=== PATIENT | female | born 1955 | race African-American/Black ===

== ENCOUNTER 2018-06-06 10:55 | Emergency (ER) | payer MEDICAID ==
[2018-06-06 11:03] VITALS: BP 119/91
[2018-06-06] MEDS ORDERED: Ketorolac 30 MG/ML SDV IM ONE (11:19)
--- NOTE | 2018-06-06 11:29 | EDM.PDOC ---
ED HPI GENERAL MEDICAL PROBLEM - General Chief Complaint: Back Pain or Injury Stated Complaint: [id number] BACK PAIN Time Seen by Provider: 06/06/18 11:15 Source of Information: Reports: Patient History Limitations: Reports: No Limitations - History of Present Illness INITIAL COMMENTS - FREE TEXT/NARRATIVE: This 63 yo female patient reports to the ED with right lower back pain. The patient reports her pain started about 6 weeks ago when she was hit by a cart while shopping in [facility]. The patient reports her pain got a little better, but has gotten worse over the past 48 hours. The patient reports she has taken Tylenol (last dose was last night). The patient has a history lower back pain and surgery. The patient has not been seen by her primary care facility (she attempted to get an appointment prior to coming to the ED, but her provider did not have any appointments available). 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 [No Known Home Meds] 11/12/14 [History] Past Medical History HEENT History: Reports: None Cardiovascular History: Reports: None Respiratory History: Reports: None Gastrointestinal History: Reports: None Genitourinary History: Reports: None Musculoskeletal History: Reports: Back Pain, Chronic Neurological History: Reports: None Psychiatric History: Reports: None Endocrine/Metabolic History: Reports: None Hematologic History: Reports: None Immunologic History: Reports: None Oncologic (Cancer) History: Reports: None Dermatologic History: Reports: None - Past Surgical History Musculoskeletal Surgical History: Reports: Other (See Below) Other Musculoskeletal Surgeries/Procedures:: back surgery, unsure what was done Social & Family History - Tobacco Use Smoking Status *Q: Current Every Day Smoker Years of Tobacco use: 30 Packs/Tins Daily: 0.5 ED ROS GENERAL - Review of Systems Review Of Systems: ROS reveals no pertinent complaints other than HPI. ED EXAM,LOWER BACK PAIN/INJURY - Physical Exam Exam: See Below Exam Limited By: No Limitations General Appearance: Alert, WD/WN, Moderate Distress Eye Exam: Bilateral Eye: EOMI, Normal Inspection, PERRL Ears: Normal External Exam, Normal Canal, Hearing Grossly Normal, Normal TMs Nose: Normal Inspection, Normal Mucosa, No Blood Throat/Mouth: Normal Inspection, Normal Lips, Normal Teeth, Normal Gums, Normal Oropharynx, Normal Voice, No Airway Compromise Head: Atraumatic, Normocephalic Neck: Normal Inspection, Supple, Non-Tender, Full Range of Motion Respiratory/Chest: No Respiratory Distress, Lungs Clear, Normal Breath Sounds, No Accessory Muscle Use, Chest Non-Tender Cardiovascular: Normal Peripheral Pulses, Regular Rate, Rhythm, No Edema, No Gallop, No JVD, No Murmur, No Rub GI/Abdominal: Normal Bowel Sounds, Soft, Non-Tender, No Organomegaly, No Distention, No Abnormal Bruit, No Mass (Female) Exam: Deferred Rectal (Female) Exam: Deferred Back Exam: Paraspinal Tenderness (right sided) Extremities: Normal Inspection, Normal Range of Motion, Non-Tender, No Pedal Edema, Normal Capillary Refill Neurological: Alert, Normal Mood/Affect, CN II-XII Intact, Normal Reflexes, No Motor/Sensory Deficits, Oriented x 3, Abnormal Gait (due to lower back pain) Psychiatric: Normal Affect, Normal Mood Skin Exam: Warm, Dry, Intact, Normal Color, No Rash Lymphatic: No Adenopathy Course - Vital Signs Last Recorded V/S: Last Vital Signs Temp 37.0 C 06/06/18 11:02 Pulse 70 06/06/18 11:02 Resp 16 06/06/18 11:02 BP 119/91 H 06/06/18 11:02 Pulse Ox 99 06/06/18 11:02 - Orders/Labs/Meds Meds: Medications Discontinued Medications Generic Name Dose Route Start Last Admin Trade Name Freq PRN Reason Stop Dose Admin Ketorolac Tromethamine 30 mg 06/06/18 11:19 06/06/18 11:25 Toradol IM 06/06/18 11:20 30 mg ONETIME ONE Administration Departure - Departure Time of Disposition: 11:36 Disposition: Home, Self-Care 01 Condition: Fair Clinical Impression: Low back pain Qualifiers: Chronicity: chronic Back pain laterality: right Sciatica presence: with sciatica Sciatica laterality: sciatica of right side Qualified Code(s): M54.41 - Lumbago with sciatica, right side - Discharge Information *PRESCRIPTION DRUG MONITORING PROGRAM REVIEWED*: Yes *COPY OF PRESCRIPTION DRUG MONITORING REPORT IN PATIENT CASEY: No Instructions: Back Pain, Adult, [id number] Forms: ED Department Discharge Care Plan Goals: The patient was advised of the examination results during the visit. The patient was given an injection of Toradol while in the ED. The patient was discharged with a script for Toradol (10 mg) #20 to take 1 by mouth every 6 hours and Flexeril (10 mg) #20 to take 1 by mouth at bedtime as needed. If the patient has any additional symptoms or concerns, the patient should follow-up with her primary care facility or return to the emergency department.
== END 2018-06-06 11:45 | disposition home or self-care (01) ==
LOC: DL.ED 10:55
DX: M54.41 Lumbago with sciatica, right side (principal); F17.210 Nicotine dependence, cigarettes, uncomplicated
CPT/HCPCS: 96372; 99283; J1885

== ENCOUNTER 2019-06-27 23:43 | Emergency (ER) | payer MEDICARE, MEDICAID ==
[2019-06-27 23:50] VITALS: BP 140/73
--- NOTE | 2019-06-28 00:02 | EDM.PDOC ---
ED HPI GENERAL MEDICAL PROBLEM - General Chief Complaint: Lower Extremity Injury/Pain Stated Complaint: KNEE Time Seen by Provider: 06/27/19 23:50 Source of Information: Reports: Patient History Limitations: Reports: No Limitations - History of Present Illness INITIAL COMMENTS - FREE TEXT/NARRATIVE: This 64 yo female patient reports to the ED with right medial knee pain that radiates up to her medial thigh. The patient reports she fell about 1 week ago. This evening (at 1900) she began to have increased pain in her knee and has not been able to sleep. The patient has not taken anything for temporary symptom relief. The patient has not seen her primary care provider and has not attempted ice or heat. 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 [No Known Home Meds] 11/12/14 [History] Past Medical History HEENT History: Reports: None Cardiovascular History: Reports: None Respiratory History: Reports: None Gastrointestinal History: Reports: None Genitourinary History: Reports: None Musculoskeletal History: Reports: Back Pain, Chronic Neurological History: Reports: None Psychiatric History: Reports: None Endocrine/Metabolic History: Reports: None Hematologic History: Reports: None Immunologic History: Reports: None Oncologic (Cancer) History: Reports: None Dermatologic History: Reports: None - Past Surgical History Musculoskeletal Surgical History: Reports: Other (See Below) Other Musculoskeletal Surgeries/Procedures:: back surgery, unsure what was done Social & Family History - Tobacco Use Smoking Status *Q: Heavy Tobacco Smoker Years of Tobacco use: 30 Packs/Tins Daily: 0.5 - Recreational Drug Use Recreational Drug Use: Yes Recreational Drug Type: Reports: Marijuana/Hashish Recreational Drug Use Frequency: Socially Review of Systems - Review of Systems Review Of Systems: ROS reveals no pertinent complaints other than HPI. ED EXAM, GENERAL - Physical Exam Exam: See Below Exam Limited By: No Limitations General Appearance: Alert, WD/WN, Mild Distress Eye Exam: Bilateral Eye: EOMI, Normal Inspection, PERRL Ears: Normal External Exam, Normal Canal, Hearing Grossly Normal, Normal TMs Nose: Normal Inspection, Normal Mucosa, No Blood Throat/Mouth: Normal Inspection, Normal Lips, Normal Teeth, Normal Gums, Normal Oropharynx, Normal Voice, No Airway Compromise Head: Atraumatic, Normocephalic Neck: Normal Inspection, Supple, Non-Tender, Full Range of Motion Respiratory/Chest: No Respiratory Distress, Lungs Clear, Normal Breath Sounds, No Accessory Muscle Use, Chest Non-Tender Cardiovascular: Normal Peripheral Pulses, Regular Rate, Rhythm, No Edema, No Gallop, No JVD, No Murmur, No Rub GI/Abdominal: Normal Bowel Sounds, Soft, Non-Tender, No Organomegaly, No Distention, No Abnormal Bruit, No Mass (Female) Exam: Deferred Rectal (Female) Exam: Deferred Back Exam: Normal Inspection, Full Range of Motion, NT Extremities: Leg Pain (right medial knee pain) Neurological: Alert, Oriented, CN II-XII Intact, Normal Cognition, Normal Gait, Normal Reflexes, No Motor/Sensory Deficits Psychiatric: Normal Affect, Normal Mood Skin Exam: Warm, Dry, Intact, Normal Color, No Rash Lymphatic: No Adenopathy Course - Vital Signs Last Recorded V/S: Last Vital Signs Temp 36.8 C 06/27/19 23:47 Pulse 72 06/27/19 23:47 Resp 16 06/27/19 23:47 BP 140/73 06/27/19 23:47 Pulse Ox 98 06/27/19 23:47 - Orders/Labs/Meds Orders: Active Orders 24 hr Category Date Time Status Knee 3V Rt [CR] Urgent Exams 06/28/19 00:06 Ordered DME for Discharge [COMM] Urgent Oth 06/28/19 00:22 Ordered Meds: Medications Discontinued Medications Generic Name Dose Route Start Last Admin Trade Name Freq PRN Reason Stop Dose Admin Ketorolac Tromethamine 30 mg 06/28/19 00:20 Toradol IM 06/28/19 00:21 ONETIME ONE Departure - Departure Time of Disposition: 00:23 Disposition: Home, Self-Care 01 Condition: Fair Clinical Impression: Strain of right knee Qualifiers: Encounter type: initial encounter Qualified Code(s): S86.911A - Strain of unspecified muscle(s) and tendon(s) at lower leg level, right leg, initial encounter - Discharge Information *PRESCRIPTION DRUG MONITORING PROGRAM REVIEWED*: Not Applicable *COPY OF PRESCRIPTION DRUG MONITORING REPORT IN PATIENT CASEY: Not Applicable Instructions: Crutch Use, Adult, [id number], Knee Sprain, Adult, [id number] , How to Use a Knee Immobilizer, Ibmt-[id number] Forms: ED Department Discharge Care Plan Goals: The patient was advised of the examination and x-ray results during the visit. The patient was given an injection of Toradol while in the ED. The patient was placed in a right knee immobilizer and given a set of crutches in the ED. The patient was encouraged to rest, ice and elevate her right knee over the next 48 hours. The patient should follow-up with her primary care facility for continued evaluation and management. If the patient has any additional symptoms or concerns, the patient should either return to the emergency department or visit her primary care facility. - My Orders Last 24 Hours: My Active Orders 06/28/19 00:06 Knee 3V Rt [CR] Urgent 06/28/19 00:22 DME for Discharge [COMM] Urgent - Assessment/Plan Last 24 Hours: My Active Orders 06/28/19 00:06 Knee 3V Rt [CR] Urgent 06/28/19 00:22 DME for Discharge [COMM] Urgent
[2019-06-28] MEDS ORDERED: Ketorolac 30 MG/ML SDV IM ONE (00:20)
== END 2019-06-28 00:35 | disposition home or self-care (01) ==
LOC: DL.ED 23:43
DX: S86.911A Strain of unspecified muscle(s) and tendon(s) at lower leg level, right leg, initial encounter (principal); F17.210 Nicotine dependence, cigarettes, uncomplicated; W19.XXXA Unspecified fall, initial encounter
CPT/HCPCS: 73562; 96372; 99283; J1885

== ENCOUNTER 2019-07-30 12:00 | Emergency (ER) | payer MEDICARE, MEDICAID ==
[2019-07-30 12:28] VITALS: BP 153/88
[2019-07-30] MEDS ORDERED: Albuterol/Ipratropium 3.0-0.5 MG/3 ML Neb Soln NEB ONE (12:40)
--- NOTE | 2019-07-30 12:47 | EDM.PDOC ---
<Della Howell - Last Filed: 07/30/19 13:40> ED HPI GENERAL MEDICAL PROBLEM - General Chief Complaint: Respiratory Problem Stated Complaint: SICK Time Seen by Provider: 07/30/19 13:45 Source of Information: Reports: Patient History Limitations: Reports: No Limitations - History of Present Illness INITIAL COMMENTS - FREE TEXT/NARRATIVE: Roosevelt is a 64 year old female presenting with cough for 4 days along with rhinorrhea. Denies fever, nausea, vomiting, diarrhea or any other complaints. She took some old antibiotics that she had from the dentist. She has not taken anything else. She is a smoker. Denies any medical history or any daily medications. Abdomen Pain Score (Numeric/FACES): 7 - Related Data Allergies Allergy/AdvReac Type Severity Reaction Status Date / Time No Known Allergies Allergy Verified 07/30/19 12:21 Home Meds: Home Meds . [No Known Home Meds] 11/12/14 [History] Past Medical History HEENT History: Reports: None Cardiovascular History: Reports: None Respiratory History: Reports: None Gastrointestinal History: Reports: None Genitourinary History: Reports: None Musculoskeletal History: Reports: Back Pain, Chronic Neurological History: Reports: None Psychiatric History: Reports: None Endocrine/Metabolic History: Reports: None Hematologic History: Reports: None Immunologic History: Reports: None Oncologic (Cancer) History: Reports: None Dermatologic History: Reports: None - Infectious Disease History Infectious Disease History: Reports: Chicken Pox, Measles, Mumps - Past Surgical History Head Surgeries/Procedures: Reports: None Musculoskeletal Surgical History: Reports: Other (See Below) Other Musculoskeletal Surgeries/Procedures:: back surgery, unsure what was done Social & Family History - Tobacco Use Smoking Status *Q: Current Every Day Smoker Years of Tobacco use: 30 Packs/Tins Daily: 0.5 Second Hand Smoke Exposure: No - Caffeine Use Caffeine Use: Reports: Coffee, Soda - Recreational Drug Use Recreational Drug Use: No ED ROS GENERAL - Review of Systems Review Of Systems: ROS reveals no pertinent complaints other than HPI. ED EXAM, GENERAL - Physical Exam Exam: See Below Exam Limited By: No Limitations General Appearance: Alert, Mild Distress (from frequent cough) Ears: Normal External Exam, Normal Canal, Hearing Grossly Normal, Normal TMs Throat/Mouth: Other (pharyngeal edema and erythema but no exudate ) Neck: Normal Inspection, Other (no lymphadenopathy ) Respiratory/Chest: Lungs Clear, Normal Breath Sounds, No Accessory Muscle Use Cardiovascular: Regular Rate, Rhythm, No Edema GI/Abdominal: Soft, Non-Tender, No Distention Extremities: No Pedal Edema Neurological: Alert, Oriented, Normal Cognition Psychiatric: Normal Affect, Normal Mood Course - Vital Signs Last Recorded V/S: Last Vital Signs Temp 97.2 F 07/30/19 12:15 Pulse 78 07/30/19 12:41 Resp 18 07/30/19 12:27 BP 153/88 H 07/30/19 12:27 Pulse Ox 98 07/30/19 12:41 - Orders/Labs/Meds Orders: Active Orders 24 hr Category Date Time Status RT Aerosol Therapy [RC] ASDIRECTED Care 07/30/19 12:41 Active RT Post Treatment Assessment [RC] Click to Edit Care 07/30/19 13:44 Active RT Pre-Treatment Assessment [RC] Click to Edit Care 07/30/19 13:44 Active Chest 1V Frontal [CR] Urgent Exams 07/30/19 12:39 Taken Labs: Laboratory Tests 07/30/19 07/30/19 Range/Units 12:47 12:47 WBC 7.7 (5.0-10.0) 10^3/uL RBC 4.91 (4.2-5.4) 10^6/uL Hgb 13.8 (12.0-16.0) g/dL Hct 41.2 (37.0-47.0) % MCV 83.9 (80-100) fL MCH 28.1 (27.0-34.0) pg MCHC 33.5 (33.0-35.0) g/dL Plt Count 303 (150-450) 10^3/uL Neut % (Auto) 56.2 (42.2-75.2) % Lymph % (Auto) 29.5 (20.5-50.1) % [place] % (Auto) 11.0 H (2-8) % Eos % (Auto) 3.0 (1.0-3.0) % Baso % (Auto) 0.3 (0.0-1.0) % Sodium 139 (135-145) mmol/L Potassium 3.9 (3.6-5.0) mmol/L Chloride 103 (101-111) mmol/L Carbon Dioxide 28.0 (21.0-31.0) mmol/L Anion Gap 11.9 BUN 11 (7-18) mg/dL Creatinine 0.7 (0.6-1.3) mg/dL Est Cr Clr Drug Dosing 65.29 mL/min Estimated GFR (MDRD) > 60 BUN/Creatinine Ratio 15.71 Glucose 107 H (74-105) mg/dL Calcium 8.8 (8.4-10.2) mg/dl Total Bilirubin 0.5 (0.2-1.0) mg/dL AST 17 (10-42) IU/L ALT 15 (10-60) IU/L Alkaline Phosphatase 100 (42-121) IU/L Total Protein 7.4 (6.7-8.2) g/dl Albumin 3.6 (3.2-5.5) g/dl Globulin 3.8 Albumin/Globulin Ratio 0.95 Meds: Medications Discontinued Medications Generic Name Dose Route Start Last Admin Trade Name Freq PRN Reason Stop Dose Admin Albuterol 6.7 gm 07/30/19 13:44 07/30/19 13:49 Proventil Hfa INH 07/30/19 13:45 2 puff ONETIME ONE Administration Albuterol/Ipratropium 3 ml 07/30/19 12:40 07/30/19 12:50 Duoneb 3.0-0.5 Mg/3 Ml NEB 07/30/19 12:41 3 ml ONETIME ONE Administration Benzonatate 200 mg 07/30/19 13:44 07/30/19 13:49 Tessalon Perles PO 07/30/19 13:45 200 mg ONETIME ONE Administration Departure - Departure Time of Disposition: 13:40 Disposition: Home, Self-Care 01 Condition: Fair Clinical Impression: COPD exacerbation - Discharge Information *PRESCRIPTION DRUG MONITORING PROGRAM REVIEWED*: Not Applicable *COPY OF PRESCRIPTION DRUG MONITORING REPORT IN PATIENT CASEY: Not Applicable Instructions: Chronic Obstructive Pulmonary Disease, [id number], How to Use a Metered Dose Inhaler Forms: ED Department Discharge Additional Instructions: Rx: Prednisone 40mg Azithromycin 500mg first day, then 250mg daily for 4 days. Albuterol inhaler Smoking cessation counseling - Assessment/Plan Assessment:: Assessment and Plan: Cough likely secondary to viral URI - CXR unremarkable - CBC, CMP within normal limits - Duoneb provided some relief. - Tesslon barbara given in ED. - Smoking cessation education provided. - Discharge to home with azithromycin and prednisone and albuterol inhaler. RT provided education for albuterol use. <LeelasergioJ Carlos - Last Filed: 07/30/19 13:55> ED EXAM, GENERAL - Physical Exam Exam: See Below Exam Limited By: No Limitations General Appearance: Alert, WD/WN, No Apparent Distress Nose: Normal Inspection, Normal Mucosa, No Blood Throat/Mouth: Other Head: Atraumatic, Normocephalic Neck: Normal Inspection, Supple, Non-Tender, Full Range of Motion Respiratory/Chest: No Respiratory Distress, No Accessory Muscle Use, Wheezing. No: Crackles, Rales, Rhonchi, Stridor Cardiovascular: Regular Rate, Rhythm, No Edema Back Exam: Normal Inspection Extremities: Normal Inspection, No Pedal Edema Neurological: Alert, Oriented Psychiatric: Normal Mood Skin Exam: Warm, Dry, Intact, Normal Color, No Rash Course - Radiology Interpretation Free Text/Narrative:: CXR: large lung volumes, COPD, see Rad. report. - Re-Assessments/Exams Free Text/Narrative Re-Assessment/Exam: 07/30/19 13:54 I saw and evaluated the patient. Discussed with resident and agree with resident s findings and plan as documented in the residents note.
[2019-07-30 12:53] VITALS: PULSE 78
[2019-07-30 13:15] LABS: ANION GAP 11.9; CHLORIDE,CL 103 mmol/L (101-111); SODIUM,NA 139 mmol/L (135-145)
[2019-07-30] MEDS ORDERED: Albuterol 6.7 GM Inhaler INH ONE (13:44)
[2019-07-30] MEDS ORDERED: Benzonatate 100 MG Cap PO ONE (13:44)
== END 2019-07-30 14:04 | disposition home or self-care (01) ==
LOC: DL.ED 12:00
DX: J44.1 Chronic obstructive pulmonary disease with (acute) exacerbation (principal); F17.210 Nicotine dependence, cigarettes, uncomplicated
CPT/HCPCS: 36415; 71045; 80053; 85025; 94640; 99284; A9270; J7620-GY

== ENCOUNTER 2020-09-19 18:49 | Emergency (ER) | payer MEDICARE, MEDICAID ==
[2020-09-19 19:56] VITALS: BP 154/80; PULSE 61
--- NOTE | 2020-09-19 20:45 | CR ---
PROCEDURE INFORMATION: Exam: XR Left Elbow Exam date and time: 09/19/2020 8:14 PM Age: 65 years old Clinical indication: Other: Pain--unknown source TECHNIQUE: Imaging protocol: XR Left elbow. Views: 3 or more views. COMPARISON: No relevant prior studies available. FINDINGS: Bones/joints: Normal. Soft tissues: Normal. IMPRESSION: No acute findings.
[2020-09-19] MEDS ORDERED: Ketorolac 10 MG Tab PO ONE (21:01)
--- NOTE | 2020-09-19 21:06 | EDM.PDOC ---
ED HPI GENERAL MEDICAL PROBLEM - General Chief Complaint: Upper Extremity Injury/Pain Stated Complaint: LEFT ARM PAIN Time Seen by Provider: 09/19/20 21:01 Source of Information: Reports: Patient History Limitations: Reports: No Limitations - History of Present Illness INITIAL COMMENTS - FREE TEXT/NARRATIVE: c/o left arm pain few weeks worse tonight, think might have bumped it few weeks ago Left Elbow Pain Score (Numeric/FACES): 9 - Related Data Allergies Allergy/AdvReac Type Severity Reaction Status Date / Time No Known Allergies Allergy Verified 09/19/20 19:55 Home Meds: Home Meds . [No Known Home Meds] 11/12/14 [History] Past Medical History HEENT History: Reports: None Cardiovascular History: Reports: None Respiratory History: Reports: None Gastrointestinal History: Reports: None Genitourinary History: Reports: None Musculoskeletal History: Reports: Back Pain, Chronic Neurological History: Reports: None Psychiatric History: Reports: None Endocrine/Metabolic History: Reports: None Hematologic History: Reports: None Immunologic History: Reports: None Oncologic (Cancer) History: Reports: None Dermatologic History: Reports: None - Infectious Disease History Infectious Disease History: Reports: Chicken Pox, Measles, Mumps - Past Surgical History Head Surgeries/Procedures: Reports: None Musculoskeletal Surgical History: Reports: Other (See Below) Other Musculoskeletal Surgeries/Procedures:: back surgery, unsure what was done Social & Family History - Family History Family Medical History: No Pertinent Family History - Tobacco Use Tobacco Use Status *Q: Current Every Day Tobacco User Years of Tobacco use: 40 Packs/Tins Daily: 0.2 - Caffeine Use Caffeine Use: Reports: Coffee, Energy Drinks, Soda - Recreational Drug Use Recreational Drug Use: Yes Recreational Drug Type: Reports: Marijuana/Hashish Review of Systems - Review of Systems Review Of Systems: Comprehensive ROS is negative, except as noted in HPI. ED EXAM, GENERAL - Physical Exam Exam: See Below Exam Limited By: No Limitations General Appearance: Alert, WD/WN, Mild Distress, Other (discomfort) Ears: Hearing Grossly Normal Throat/Mouth: Normal Voice, No Airway Compromise Head: Atraumatic Neck: Non-Tender, Full Range of Motion Respiratory/Chest: No Respiratory Distress Cardiovascular: Regular Rate, Rhythm GI/Abdominal: Soft, Non-Tender (Female) Exam: Deferred Rectal (Female) Exam: Deferred Extremities: Limited Range of Motion, Other (left elbow tender R/P, NV wnl, no gross D/D) Neurological: Alert, Oriented, Normal Cognition, Normal Gait, No Motor/Sensory Deficits Psychiatric: Tearful Skin Exam: Warm, Dry, Normal Color Lymphatic: No Adenopathy Course - Vital Signs Last Recorded V/S: Last Vital Signs Temp 36.8 C 09/19/20 19:05 Pulse 61 09/19/20 19:05 Resp 14 09/19/20 19:05 BP 154/80 H 09/19/20 19:05 Pulse Ox 96 09/19/20 19:05 - Orders/Labs/Meds Orders: Active Orders 24 hr Category Date Time Status EKG Documentation Completion [RC] ROUTINE Care 09/19/20 19:56 Active Ketorolac [Toradol] Med 09/19/20 21:01 Once 10 mg PO ONETIME ONE - Re-Assessments/Exams Free Text/Narrative Re-Assessment/Exam: 09/19/20 21:03 results discussed with pt. Departure - Departure Time of Disposition: 21:04 Disposition: Home, Self-Care 01 Condition: Good Clinical Impression: Elbow pain, left - Discharge Information Additional Instructions: 1) see clinic for possible MRI SCAN 2) wear sling for comfort over the weekend 3) try hot compress to sore area rx given; toradol 10mg bid x 12 Sepsis Event Note (ED) - Evaluation Sepsis Screening Result: No Definite Risk - Focused Exam Vital Signs: Vital Signs Temp Pulse Resp BP Pulse Ox 09/19/20 19:05 36.8 C 61 14 154/80 H 96 - My Orders Last 24 Hours: My Active Orders 09/19/20 19:56 EKG Documentation Completion [RC] ROUTINE 09/19/20 21:01 Ketorolac [Toradol] 10 mg PO ONETIME ONE - Assessment/Plan Last 24 Hours: My Active Orders 09/19/20 19:56 EKG Documentation Completion [RC] ROUTINE 09/19/20 21:01 Ketorolac [Toradol] 10 mg PO ONETIME ONE
== END 2020-09-19 21:24 | disposition home or self-care (01) ==
LOC: DL.ED 18:49
DX: M25.522 Pain in left elbow (principal); F17.210 Nicotine dependence, cigarettes, uncomplicated
CPT/HCPCS: 73080; 93005; 99283; A9270

== ENCOUNTER 2023-02-02 02:52 | Emergency (ER) | payer MEDICARE, MEDICAID ==
[2023-02-02] MEDS ORDERED: Ketorolac 10 MG Tab PO ONE (03:32)
[2023-02-02 03:34] VITALS: BP 164/105; PULSE 64
== END 2023-02-02 03:49 | disposition home or self-care (01) ==
LOC: DL.ED 02:52
DX: M25.552 Pain in left hip (principal); M25.562 Pain in left knee; W00.0XXA Fall on same level due to ice and snow, initial encounter; M25.512 Pain in left shoulder
CPT/HCPCS: 99283; A9270

== ENCOUNTER 2023-10-27 09:19 | Emergency (ER) | payer MEDICARE, MEDICAID ==
[2023-10-27 09:46] VITALS: BP 169/96; PULSE 77
[2023-10-27] MEDS ORDERED: Sodium Chloride 0.9% 10 ML Syringe FLUSH PRN (09:49)
[2023-10-27] MEDS ORDERED: Ondansetron 4 MG/2 ML SDV IV ONE (09:49)
[2023-10-27] MEDS ORDERED: Sodium Chloride 0.9% 1,000 ML IV ONE (09:49)
[2023-10-27] MEDS ORDERED: Ketorolac 30 MG/ML SDV IVPUSH ONE (09:49)
[2023-10-27 10:11] LABS: BASOPHILS PERCENT AUTO 0.5 % (0.0-1.0); HEMATOCRIT 42.2 % (37.0-47.0); HEMOGLOBIN 14.2 g/dL (12.0-16.0); LYMPHOCYTES PERCENT AUTO 27.1 % (20.5-50.1); MEAN CORPUSCULAR HEMOGLOBIN 28.3 pg (27.0-34.0); MEAN CORPUSCULAR HGB CONC 33.6 g/dL (33.0-35.0); MEAN CORPUSCULAR VOLUME 84.1 fL (80-100); MONOCYTES PERCENT AUTO 15.5 % (2-8); NEUTROPHILS PERCENT AUTO 56.9 % (42.2-75.2); PLATELET COUNT,PLT 358 10^3/uL (150-450); RED BLOOD CELL COUNT 5.02 10^6/uL (4.2-5.4); WHITE BLOOD CELL COUNT,WBC 4.1 10^3/uL (5.0-10.0)
[2023-10-27 10:17] LABS: CORONAVIRUS COVID-19 NAA NEGATIVE (NEGATIVE); INFLUENZA A NAA POSITIVE (NEGATIVE); INFLUENZA B NAA NEGATIVE (NEGATIVE); RESPIRATORY SYNCYTIAL VIR NAA NEGATIVE (NEGATIVE)
[2023-10-27 10:30] LABS: ALBUMIN 3.2 g/dL (3.4-5.0); ANION GAP 13.8 mEq/L (7-13); BILIRUBIN TOTAL 0.2 mg/dL (0.2-1.0); BUN/CREATININE RATIO 9.6 (No establ ref range); CALCIUM 8.9 mg/dL (8.5-10.1); CREATININE 0.83 mg/dL (0.55-1.02); EST CRCL DRUG DOSING (CG) 52.13 mL/min; POTASSIUM,K 3.8 mmol/L (3.5-5.1); PROTEIN TOTAL,TP 8.1 g/dL (6.4-8.2)
[2023-10-27 10:34] LABS: A/G RATIO 0.65
[2023-10-27 10:35] LABS: LACTIC ACID 1.2 mmol/L (0.4-2.0)
== END 2023-10-27 11:30 | disposition home or self-care (01) ==
LOC: DL.ED 09:19
DX: J10.1 Influenza due to other identified influenza virus with other respiratory manifestations (principal); M62.838 Other muscle spasm; Z20.822 Contact with and (suspected) exposure to COVID-19
CPT/HCPCS: 0241U; 36415; 71045; 80053; 83605; 85025; 87040; 96374; 96375; 99284; 99284-25; J1885; J2405; J3490; J7030

== ENCOUNTER 2024-07-01 07:42 | Emergency (ER) | payer MEDICARE, MEDICAID ==
[2024-07-01 07:54] VITALS: BP 173/136; PULSE 80
== END 2024-07-01 08:04 | disposition left against medical advice (07) ==
LOC: DL.ED 07:42
DX: Z53.21 Procedure and treatment not carried out due to patient leaving prior to being seen by health care provider (principal)

== ENCOUNTER 2025-05-22 07:41 | Emergency (ER) | payer MEDICAID, MEDICARE ==
[2025-05-22 08:00] VITALS: PULSE 68
[2025-05-22] MEDS: Ketorolac 30 MG/ML SDV IM ONE (08:15)
[2025-05-22 08:36] VITALS: BP 205/100
== END 2025-05-22 08:26 | disposition home or self-care (01) ==
LOC: DL.ED 07:41
DX: M50.90 Cervical disc disorder, unspecified, unspecified cervical region (principal); M62.830 Muscle spasm of back
CPT/HCPCS: 96372; 99283; 99284; A9270; J1885

== ENCOUNTER 2025-07-12 19:44 | Observation (INO) | payer MEDICARE, OTHER ==
[2025-07-12 20:30] LABS: BASOPHILS PERCENT AUTO 0.2 % (0.0-1.0); EOSINOPHILS PERCENT AUTO 0.9 % (1.0-3.0); LYMPHOCYTES PERCENT AUTO 29.3 % (20.5-50.1); MONOCYTES PERCENT AUTO 9.5 % (2-8); NEUTROPHILS PERCENT AUTO 60.1 % (42.2-75.2); PLATELET COUNT,PLT 357 10^3/uL (150-450); RED BLOOD CELL COUNT 5.04 10^6/uL (4.2-5.4); WHITE BLOOD CELL COUNT,WBC 8.8 10^3/uL (5.0-10.0)
[2025-07-12 20:47] LABS: A/G RATIO 0.7; ALANINE AMINOTRANSFERASE,ALT 22.0 U/L (14-59); ASPARTATE AMNIOTRANSFERASE,AST 15.0 U/L (15-37); BILIRUBIN TOTAL 0.3 mg/dL (0.2-1.0); BLOOD UREA NITROGEN,BUN 12.0 mg/dL (7-18); CARBON DIOXIDE,CO2 30.0 mmol/L (21-32); CHLORIDE,CL 101.0 mmol/L (98-107); CREATININE 0.88 mg/dL (0.55-1.02); EST CRCL DRUG DOSING (CG) 44.84 mL/min; ESTIMATED GFR 70.0 mL/min (>=60); GLUCOSE RANDOM 102.0 mg/dL (70-99); POTASSIUM,K 4.0 mmol/L (3.5-5.1); PROTEIN TOTAL,TP 8.3 g/dL (6.4-8.2); SODIUM,NA 138.0 mmol/L (136-145)
[2025-07-12] MEDS ORDERED: Sodium Chloride 0.9% 10 ML Syringe FLUSH PRN (22:18)
[2025-07-12] MEDS ORDERED: Magnesium Hydroxide 400 MG/5 ML Susp 30 ML Cup PO PRN (22:18)
[2025-07-12] MEDS ORDERED: Acetaminophen/HYDROcodone 325-5 MG Tab PO PRN (22:18)
[2025-07-12] MEDS ORDERED: Ondansetron 4 MG/2 ML SDV IVPUSH PRN (22:18)
[2025-07-12] MEDS ORDERED: Sennosides/Docusate Sodium 50-8.6 MG Tab PO PRN (22:18)
[2025-07-12] MEDS ORDERED: Flumazenil 0.1 MG/ML 5 ML MDV IVPUSH PRN (22:56)
[2025-07-12 22:57] LABS: CREATINE KINASE,CK 146.0 U/L (16-191); T4 FREE 0.96 ng/dL (0.76-1.46); TSH ULTRASENSITIVE 2.14 uIU/mL (0.36-3.74)
[2025-07-12] MEDS: MVI, Adult with Vitamin K 10 ML, Folic Acid 1 MG, Thiamine 100 MG in Lactated Ringers 1... IV ONE (23:27)
[2025-07-12] MEDS: niCARdipine/Normal Saline 20 MG in Premix Bag 1 BAG IV SCH (23:50)
[2025-07-13 00:31] LABS: APPEARANCE,URINE CLEAR (CLEAR); GLUCOSE,URINE NEGATIVE (NEGATIVE); OCCULT BLOOD,URINE SMALL (NEGATIVE)
[2025-07-13 00:34] LABS: AMPHETAMINES,URINE NEGATIVE (NEGATIVE); BARBITURATES,URINE NEGATIVE (NEGATIVE); MDMA (ECSTASY), URINE NEGATIVE (NEGATIVE); METHAMPHETAMINES,URINE NEGATIVE (NEGATIVE); OPIATES,URINE NEGATIVE (NEGATIVE); OXYCODONE,URINE NEGATIVE (NEGATIVE); PHENCYCLIDINE,URINE NEGATIVE (NEGATIVE); TCA,URINE NEGATIVE (NEGATIVE)
[2025-07-13 00:49] LABS: EPITHELIAL CELLS,URINE FEW /HPF (NOT SEEN)
[2025-07-13 06:06] LABS: BASOPHILS PERCENT AUTO 0.1 % (0.0-1.0); EOSINOPHILS PERCENT AUTO 1.6 % (1.0-3.0); LYMPHOCYTES PERCENT AUTO 32.5 % (20.5-50.1); MONOCYTES PERCENT AUTO 9.7 % (2-8); NEUTROPHILS PERCENT AUTO 56.1 % (42.2-75.2); PLATELET COUNT,PLT 351 10^3/uL (150-450); RED BLOOD CELL COUNT 4.84 10^6/uL (4.2-5.4); WHITE BLOOD CELL COUNT,WBC 7.4 10^3/uL (5.0-10.0)
[2025-07-13 06:31] LABS: ALANINE AMINOTRANSFERASE,ALT 20.0 U/L (14-59); ASPARTATE AMNIOTRANSFERASE,AST 13.0 U/L (15-37); BILIRUBIN TOTAL 0.4 mg/dL (0.2-1.0); BLOOD UREA NITROGEN,BUN 7.0 mg/dL (7-18); CARBON DIOXIDE,CO2 28.0 mmol/L (21-32); CHLORIDE,CL 103.0 mmol/L (98-107); CREATINE KINASE,CK 122.0 U/L (16-191); CREATININE 0.6 mg/dL (0.55-1.02); EST CRCL DRUG DOSING (CG) 63.8 mL/min; GLUCOSE RANDOM 114.0 mg/dL (70-99); POTASSIUM,K 3.3 mmol/L (3.5-5.1); PROTEIN TOTAL,TP 7.6 g/dL (6.4-8.2); SODIUM,NA 139.0 mmol/L (136-145)
[2025-07-13 06:32] LABS: A/G RATIO 0.69; ESTIMATED GFR 96.0 mL/min (>=60)
[2025-07-13] MEDS: Sodium Chloride 0.9% 10 ML Syringe FLUSH SCH (10:18)
[2025-07-13] MEDS: Potassium Chloride 10 MEQ Tab.ER PO ONE (11:16)
[2025-07-13 11:24] VITALS: BP 158/84; PULSE 74
[2025-07-13] MEDS ORDERED: Saccharomyces Boulardii (Probiotic) 250 MG Cap PO SCH (14:00)
== END 2025-07-13 13:40 | disposition left against medical advice (07) ==
LOC: DL.ED 19:44 → DL.MS 21:39
PROVIDERS: ADMIT Internal Medicine; ATTEND Internal Medicine
DX: I16.0 Hypertensive urgency (principal); J42 Unspecified chronic bronchitis; J98.11 Atelectasis; M19.90 Unspecified osteoarthritis, unspecified site; M54.50 Low back pain, unspecified; M62.50 Muscle wasting and atrophy, not elsewhere classified, unspecified site; E43 Unspecified severe protein-calorie malnutrition; F14.10 Cocaine abuse, uncomplicated; E87.6 Hypokalemia; F17.210 Nicotine dependence, cigarettes, uncomplicated; Z79.899 Other long term (current) drug therapy
CPT/HCPCS: 36415; 71046; 80053; 80305; 81001; 82550; 83735; 84439; 84443; 84484; 85025; 93005; 99285; A9270; J1650; J1808; J2404; J3411; J7120; 96365; 96366; 96368; 96372; G0378; J3490

== ENCOUNTER 2025-08-30 19:06 | Emergency (ER) | payer MEDICARE ==
[2025-08-30 19:38] LABS: BASOPHILS PERCENT AUTO 0.3 % (0.0-1.0); EOSINOPHILS PERCENT AUTO 2.3 % (1.0-3.0); LYMPHOCYTES PERCENT AUTO 36.0 % (20.5-50.1); MONOCYTES PERCENT AUTO 8.1 % (2-8); NEUTROPHILS PERCENT AUTO 53.3 % (42.2-75.2); PLATELET COUNT,PLT 358 10^3/uL (150-450); RED BLOOD CELL COUNT 4.47 10^6/uL (4.2-5.4); WHITE BLOOD CELL COUNT,WBC 7.5 10^3/uL (5.0-10.0)
[2025-08-30] MEDS: Tetracaine HCl/PF 0.5% 4 ML Bottle EYEBOTH ONE (19:46)
[2025-08-30 19:56] LABS: A/G RATIO 0.83; ALANINE AMINOTRANSFERASE,ALT 25 U/L (14-59); ASPARTATE AMNIOTRANSFERASE,AST 21 U/L (15-37); BILIRUBIN TOTAL 0.1 mg/dL (0.2-1.0); BLOOD UREA NITROGEN,BUN 19 mg/dL (7-18); CARBON DIOXIDE,CO2 27 mmol/L (21-32); CHLORIDE,CL 104 mmol/L (98-107); CREATININE 0.76 mg/dL (0.55-1.02); ESTIMATED GFR 84 mL/min (>=60); GLUCOSE RANDOM 99 mg/dL (70-99); POTASSIUM,K 3.8 mmol/L (3.5-5.1); PROTEIN TOTAL,TP 7.3 g/dL (6.4-8.2); SODIUM,NA 140 mmol/L (136-145)
[2025-08-30 23:54] VITALS: BP 161/101; PULSE 60
== END 2025-08-31 | disposition home or self-care (01) ==
LOC: DL.ED 19:06
DX: H34.9 Unspecified retinal vascular occlusion (principal); Z79.899 Other long term (current) drug therapy; F17.200 Nicotine dependence, unspecified, uncomplicated
CPT/HCPCS: 36415; 80053; 85025; 86140; 93005; 99284; A9270; J3490